=== PATIENT | female | born 1985 | race Caucasian/White ===

== ENCOUNTER 2020-06-16 08:37 | Day surgery (SDC) | payer BC ==
[~2020-06-16] VITALS: Ht 177.8 cm; Wt 113.8 kg
[~2020-06-16 08:37] MED LIST: CODACE30 PO; IBUP800 PO
--- NOTE | 2020-06-16 09:40 | NUR ---
06/16/20 0940 Nikky Miller (Laura BEDSIDE INJECTION WITH DR. ARMENTA TIMEOUT CONDUCTED 2MG VERSED IVP GIVEN PER DR. MEANS PULSE OX ON PATIENT THROUGHOUT PROCEDURE. INJECTION BEGAN: 927, COMPLETED AT 933. PT TOLERATED WELL.
== END 2020-06-16 10:55 | disposition home or self-care (01) ==
LOC: ORSCSDS 08:37
PROVIDERS: Orthopaedic Surgery
PROC: 01N54ZZ Release Median Nerve, Percutaneous Endoscopic Approach (ICD-10-PCS; principal; 2020-06-16 09:45)
DX: G56.02 Carpal tunnel syndrome, left upper limb (principal); E66.01 Morbid (severe) obesity due to excess calories; Z68.36 Body mass index [BMI] 36.0-36.9, adult
CPT/HCPCS: J0690; J2250; J3010; J7120

== ENCOUNTER 2020-08-25 10:58 | Day surgery (SDC) | payer BC ==
[~2020-08-25] VITALS: Ht 177.8 cm; Wt 115.9 kg
== END 2020-08-25 13:01 | disposition home or self-care (01) ==
LOC: ORSCSDS 10:58
PROVIDERS: Orthopaedic Surgery
PROC: 01N54ZZ Release Median Nerve, Percutaneous Endoscopic Approach (ICD-10-PCS; principal; 2020-08-25 12:30)
DX: G56.01 Carpal tunnel syndrome, right upper limb (principal); E66.9 Obesity, unspecified; Z68.35 Body mass index [BMI] 35.0-35.9, adult
CPT/HCPCS: J2250; J3010; J7120

== ENCOUNTER → 2021-03-29 | Outpatient (CLI) | payer BC | END | disposition home or self-care (01) | LOC: LAB SHORT 08:29 | DX: L73.8 Other specified follicular disorders (principal) | CPT/HCPCS: 88305; 88312 ==